=== PATIENT | female | born 1990 | race Caucasian/White ===

== ENCOUNTER 2019-11-30 14:37 | Outpatient (CLI) | payer OTHER ==
--- NOTE | 2019-11-30 16:25 | RAD ---
Exam: Hysterosalpingogram HISTORY: Infertility. COMPARISON: None FINDINGS: Initial supine psychiatric cns pelvic radiograph demonstrates a nonspecific bowel gas pattern. Contrast was administered in a retrograde fashion and opacifies a normal-appearing endometrium. Contr ast opacifies the left and right fallopian tube. Spillage in the left and right hemipelvis suggesting fallopian tube patency, bilaterally. Lower uterine segment is unremarkable. IMPRESSION: Free spillage in the left right hemipelvis suggesting bilateral fallopian tube patency. Transcribed Date/Time: 11/30/2019 4:49 PM
== END 2019-11-30 14:38 | disposition home or self-care (01) ==
LOC: RAD 14:37
PROVIDERS: ATTEND Obstetrics & Gynecology
DX: N97.0 Female infertility associated with anovulation (principal)
CPT/HCPCS: 58340; 74740